=== PATIENT | female | born 1960 | race Hispanic/Latino ===

== ENCOUNTER → 2021-02-27 | Outpatient (CLI) | payer MEDICAID, OTHER ==
[~2021-02-27] MED LIST: AMIT50TA PO; BASA100I SQ; BUSP15TA47 PO; FLUTISP INH; IBUP80TA PO; INVO100T PO; LOSA50TA88 PO; METF10004 PO; METH-1177 PO; METR-265 PO; NYST1POW9 TOP; QUET200T2 PO; RAME8TAB2 PO; SIMV40TA20 PO; TRAZ-189 PO
== END ==
LOC: M LABSMTC 11:05
PROVIDERS: ATTEND Anesthesiology
DX: Z01.812 Encounter for preprocedural laboratory examination (principal); Z11.52 Encounter for screening for COVID-19

== ENCOUNTER 2021-03-04 10:33 | Day surgery (SDC) | payer OTHER ==
[~2021-03-04] VITALS: Ht 152.4 cm; Wt 90.6 kg
[~2021-03-04 10:33] MED LIST changes: +LOSA50TA28 PO; -LOSA50TA88 PO; +NS 1,000 ML IV ONE
[2021-03-04] MEDS ORDERED: LIDOCAINE 2% 100MG/5ML SDV (FOR ANES.) As Ordered ONE (12:12)
[2021-03-04] MEDS ORDERED: propofoL 200 MG/20 ML VIAL As Ordered ONE ×2 (12:12→12:22)
[2021-03-04 13:05] VITALS: BP 183/90
== END 2021-03-04 13:15 | disposition home or self-care (01) ==
LOC: M OPP 10:33
PROVIDERS: ATTEND Internal Medicine Gastroenterology
DX: Z12.11 Encounter for screening for malignant neoplasm of colon (principal); D12.6 Benign neoplasm of colon, unspecified; K57.30 Diverticulosis of large intestine without perforation or abscess without bleeding; K64.0 First degree hemorrhoids; D49.0 Neoplasm of unspecified behavior of digestive system; K63.89 Other specified diseases of intestine; Z79.82 Long term (current) use of aspirin; Z79.84 Long term (current) use of oral hypoglycemic drugs; Z79.899 Other long term (current) drug therapy

== ENCOUNTER 2021-04-01 07:30 | Inpatient (IN) | payer OTHER ==
[~2021-04-01] VITALS: Ht 152.4 cm; Wt 95.6 kg
[~2021-04-01 07:30] MED LIST changes: -GASTROGRAFIN SOLUTION 30ML (Q9963) ONE; -ISOVUE-370 76% 100ML VIAL ONE; -METR-265; -NEOM500T; -PERCOCET PO
[2021-04-09] MEDS ORDERED: cefTRIAXone SOD 2 GM in D5W MINI-BAG PLUS 50 ML IV ONE (06:00)
[2021-04-09] MEDS ORDERED: LIDOCAINE 1% MDV 20ML VIAL SQ PRN (06:00)
[2021-04-09] MEDS ORDERED: LR 1,000 ML IV ONE (06:00)
[2021-04-09] MEDS ORDERED: METR-265 (06:36)
[2021-04-09] MEDS ORDERED: NEOM500T (06:36)
[2021-04-09] MEDS ORDERED: BUPIVACAINE/EPIN 0.25% 30 ML VIAL As Ordered ONE (07:11)
[2021-04-09] MEDS ORDERED: GLUCAGON INJ 1MG VIAL As Ordered ONE (07:11)
[2021-04-09] MEDS ORDERED: LIDOCAINE 2% 100MG/5ML SDV (FOR ANES.) As Ordered ONE (07:19)
[2021-04-09] MEDS ORDERED: propofoL 200 MG/20 ML VIAL As Ordered ONE (07:19)
[2021-04-09] MEDS ORDERED: ROCURONIUM BROMIDE 50 MG/5 ML VIAL As Ordered ONE ×2 (07:19→08:09)
[2021-04-09] MEDS ORDERED: MIDAZOLAM INJ 2MG/2ML VIAL (J2250 PER 1MG) As Ordered ONE (07:20)
[2021-04-09] MEDS ORDERED: fentaNYL 100 MCG/2 ML INJECTION (J3010) As Ordered ONE (07:20)
[2021-04-09] MEDS ORDERED: dexameTHASONE 4 MG/ML 1ML VIAL (J1100 PER 1MG) As Ordered ONE (07:55)
[2021-04-09] MEDS ORDERED: SUGAMMADEX SODIUM 500 MG/5 ML VIAL (BRIDION) As Ordered ONE (08:09)
[2021-04-09] MEDS ORDERED: ONDANSETRON 4MG/2ML VIAL As Ordered ONE (08:09)
[2021-04-09] MEDS ORDERED: ACETAMINOPHEN 1000MG 100ML IV BTL (OFIRMEV) (J0131 PER 10MG) As Ordered ONE (08:09)
[2021-04-09] MEDS ORDERED: METOCLOPRAMIDE INJ 10MG/2ML VIAL (J2765 PER 1) As Ordered ONE (08:09)
[2021-04-09] MEDS ORDERED: HYDROmorphone HCL 2MG/ML 1ML VIAL As Ordered ONE (08:10)
[2021-04-09] MEDS ORDERED: BUPIVACAINE HCL 0.25% 10ML VIAL As Ordered ONE (10:31)
[2021-04-09] MEDS ORDERED: BUPIVACAINE LIPOSOME/PF 1.3% 20ML VIAL (13.3MG/ML)(EXPAREL)(C9290 PER1MG) As Ordered ONE (10:31)
[2021-04-09] MEDS ORDERED: MORPHINE 2 MG/ML 1ML VIAL (J2270) IV PRN ×2 (11:05)
[2021-04-09] MEDS ORDERED: ONDANSETRON 4MG/2ML VIAL IV PRN ×2 (11:05→11:35)
[2021-04-09] MEDS ORDERED: FLUTICASONE PROP 0.05% NASAL SPRAY 16 GM (FLONASE) NARES PRN (11:10)
[2021-04-09] MEDS ORDERED: oxyCODONE 5MG TAB PO PRN (11:35)
[2021-04-09] MEDS ORDERED: fentaNYL 100 MCG/2 ML INJECTION (J3010) IV PRN (11:35)
[2021-04-09] MEDS ORDERED: LR 1,000 ML IV SCH (11:35)
[2021-04-09] MEDS: MORPHINE 2 MG/ML 1ML VIAL (J2270) IV PRN ×3 (11:46→17:20)
[2021-04-09] MEDS: IPRATROPIUM 0.5MG/ALBUTEROL 2.5MG INH SOL UD 3ML (DUONEB) NEB SCH ×3 (12:00→19:37)
[2021-04-09 14:05] VITALS: BP 155/106
[2021-04-09] MEDS: LR 1,000 ML IV SCH ×2 (14:20→22:39)
[2021-04-09] MEDS: KETOROLAC 30 MG/ML 1ML VIAL IV SCH ×2 (14:34→20:48)
[2021-04-09] MEDS ORDERED: DEXTROSE 50% 50 ML SYRINGE IV PRN (15:10)
[2021-04-09] MEDS ORDERED: GLUCAGON INJ 1MG VIAL SC PRN (15:10)
[2021-04-09] MEDS ORDERED: GLUCOSE 4GM CHEW TABLET PO PRN (15:10)
[2021-04-09] MEDS: AMITRIPTYLINE 50 MG TAB PO SCH ×2 (16:54→20:46)
[2021-04-09] MEDS: HumaLOG INSULIN (NovoLOG) PER UNIT SC SCH (17:31)
[2021-04-09 19:15] VITALS: BP 185/95
[2021-04-09] MEDS ORDERED: LOSARTAN 50MG TABLET PO ONE (19:25)
[2021-04-09] MEDS: traZODone 100 MG TAB PO SCH (20:45)
[2021-04-09] MEDS: busPIRone 5 MG TAB PO SCH (20:46)
[2021-04-09] MEDS: RAMELTEON 8 MG TAB (ROZEREM) PO SCH (20:46)
[2021-04-09 21:00] VITALS: BP 141/99
[2021-04-09] MEDS: QUEtiapine FUMARATE 200 MG TAB PO SCH (21:00)
[2021-04-09 22:00] VITALS: BP 107/76
[2021-04-09 22:41] LABS: HEMATOCRIT 38.3 % (36.0-47.0); HEMOGLOBIN 12.5 g/dl (12.0-15.5)
[2021-04-09 23:10] VITALS: BP 111/76
[2021-04-10 02:00] VITALS: BP 111/75
[2021-04-10] MEDS: HumaLOG INSULIN (NovoLOG) PER UNIT SC SCH ×5 (02:05→23:43)
[2021-04-10 02:50] VITALS: BP 105/69
[2021-04-10] MEDS: MORPHINE 2 MG/ML 1ML VIAL (J2270) IV PRN ×2 (03:17→21:18)
[2021-04-10] MEDS: KETOROLAC 30 MG/ML 1ML VIAL IV SCH ×5 (04:41→19:04)
[2021-04-10 06:00] VITALS: BP 103/67
[2021-04-10 06:17] LABS: HEMATOCRIT 29.9 % (36.0-47.0); MEAN CORPUSCULAR HEMOGLOBIN 30.4 pg (27.0-33.0); MEAN CORPUSCULAR HGB CONC 32.1 g/dl (32.0-36.5); MEAN CORPUSCULAR VOLUME 94.6 fl (80.0-96.0); PLATELET COUNT, AUTOMATED 275 10^3/uL (150-450); RED BLOOD COUNT 3.16 10^6/uL (4.00-5.40); WHITE BLOOD COUNT 11.9 10^3/uL (4.0-10.0)
[2021-04-10 06:27] LABS: HEMOGLOBIN 9.6 g/dl (12.0-15.5)
[2021-04-10] MEDS: LR 1,000 ML IV SCH ×3 (06:43→21:17)
[2021-04-10 07:00] LABS: CALCIUM LEVEL 8.3 MG/DL (8.8-10.2); CREATININE FOR GFR 1.27 MG/DL (0.55-1.30); GLOMERULAR FILTRATION RATE 45.7 (>45)
[2021-04-10] MEDS: IPRATROPIUM 0.5MG/ALBUTEROL 2.5MG INH SOL UD 3ML (DUONEB) NEB SCH ×4 (08:00→19:58)
[2021-04-10] MEDS ORDERED: cefTRIAXone SOD 1 GM in D5W MINI-BAG PLUS 50 ML IV ONE (08:00)
[2021-04-10] MEDS: LOSARTAN 50MG TABLET PO SCH (09:00)
[2021-04-10 10:26] LABS: HEMATOCRIT 29.2 % (36.0-47.0); HEMOGLOBIN 9.4 g/dl (12.0-15.5)
[2021-04-10] MEDS: PANTOPRAZOLE 40MG VIAL (C9113 PER 1) IV SCH (10:40)
[2021-04-10] MEDS: QUEtiapine FUMARATE 200 MG TAB PO SCH ×2 (10:41→21:16)
[2021-04-10] MEDS: AMITRIPTYLINE 50 MG TAB PO SCH ×3 (10:41→21:16)
[2021-04-10] MEDS ORDERED: NS 1,000 ML IV ONE (11:55)
[2021-04-10 14:00] VITALS: BP 118/68
[2021-04-10] MEDS: RAMELTEON 8 MG TAB (ROZEREM) PO SCH (21:16)
[2021-04-10] MEDS: traZODone 100 MG TAB PO SCH (21:16)
[2021-04-10] MEDS: busPIRone 5 MG TAB PO SCH (21:19)
[2021-04-10 22:00] VITALS: BP 127/79
[2021-04-11] VITALS (16 sets, daily range): BP systolic 113–149; BP diastolic 67–84; O2SAT 87–95
[2021-04-11] MEDS: KETOROLAC 30 MG/ML 1ML VIAL IV SCH ×4 (01:51→19:03)
[2021-04-11] MEDS: LR 1,000 ML IV SCH (05:58)
[2021-04-11] MEDS: HumaLOG INSULIN (NovoLOG) PER UNIT SC SCH ×3 (06:09→18:00)
[2021-04-11 06:15] LABS: HEMATOCRIT 21.6 % (36.0-47.0); MEAN CORPUSCULAR HEMOGLOBIN 30.8 pg (27.0-33.0); MEAN CORPUSCULAR HGB CONC 32.4 g/dl (32.0-36.5); MEAN CORPUSCULAR VOLUME 95.2 fl (80.0-96.0); PLATELET COUNT, AUTOMATED 177 10^3/uL (150-450); RED BLOOD COUNT 2.27 10^6/uL (4.00-5.40); WHITE BLOOD COUNT 9.7 10^3/uL (4.0-10.0)
[2021-04-11 06:37] LABS: BLOOD UREA NITROGEN 15 MG/DL (7-18); CALCIUM LEVEL 7.7 MG/DL (8.8-10.2); CARBON DIOXIDE LEVEL 28 MEQ/L (21-32); CHLORIDE LEVEL 111 MEQ/L (98-107); CREATININE FOR GFR 0.79 MG/DL (0.55-1.30); GLOMERULAR FILTRATION RATE > 60.0 (>45); GLUCOSE, FASTING 124 MG/DL (70-100); POTASSIUM SERUM 3.6 MEQ/L (3.5-5.1); SODIUM LEVEL 142 MEQ/L (136-145)
[2021-04-11] MEDS: QUEtiapine FUMARATE 200 MG TAB PO SCH ×2 (08:28→20:16)
[2021-04-11] MEDS: AMITRIPTYLINE 50 MG TAB PO SCH ×3 (08:28→20:15)
[2021-04-11] MEDS: PANTOPRAZOLE 40MG VIAL (C9113 PER 1) IV SCH (08:28)
[2021-04-11] MEDS: LOSARTAN 50MG TABLET PO SCH (08:30)
[2021-04-11] MEDS: IPRATROPIUM 0.5MG/ALBUTEROL 2.5MG INH SOL UD 3ML (DUONEB) NEB SCH ×4 (09:22→20:00)
[2021-04-11] MEDS: MORPHINE 2 MG/ML 1ML VIAL (J2270) IV PRN (15:47)
[2021-04-11] MEDS: traZODone 100 MG TAB PO SCH (20:15)
[2021-04-11] MEDS: RAMELTEON 8 MG TAB (ROZEREM) PO SCH (20:15)
[2021-04-11] MEDS: busPIRone 5 MG TAB PO SCH (20:15)
[2021-04-12] VITALS (7 sets, daily range): BP systolic 121–161; BP diastolic 68–86
[2021-04-12] MEDS: HumaLOG INSULIN (NovoLOG) PER UNIT SC SCH ×4 (00:36→18:50)
[2021-04-12] MEDS: KETOROLAC 30 MG/ML 1ML VIAL IV SCH ×4 (01:53→19:49)
[2021-04-12] MEDS: MORPHINE 2 MG/ML 1ML VIAL (J2270) IV PRN ×2 (05:35→16:43)
[2021-04-12 06:30] LABS: HEMOGLOBIN 8.9 g/dl (12.0-15.5); MEAN CORPUSCULAR HEMOGLOBIN 30.1 pg (27.0-33.0); MEAN CORPUSCULAR VOLUME 91.2 fl (80.0-96.0); PLATELET COUNT, AUTOMATED 175 10^3/uL (150-450); RED BLOOD COUNT 2.96 10^6/uL (4.00-5.40); WHITE BLOOD COUNT 7.5 10^3/uL (4.0-10.0)
[2021-04-12 06:59] LABS: BLOOD UREA NITROGEN 8 MG/DL (7-18); CALCIUM LEVEL 7.9 MG/DL (8.8-10.2); CARBON DIOXIDE LEVEL 28 MEQ/L (21-32); CHLORIDE LEVEL 110 MEQ/L (98-107); CREATININE FOR GFR 0.64 MG/DL (0.55-1.30); GLOMERULAR FILTRATION RATE > 60.0 (>45); GLUCOSE, FASTING 115 MG/DL (70-100); POTASSIUM SERUM 3.3 MEQ/L (3.5-5.1); SODIUM LEVEL 143 MEQ/L (136-145)
[2021-04-12] MEDS: IPRATROPIUM 0.5MG/ALBUTEROL 2.5MG INH SOL UD 3ML (DUONEB) NEB SCH ×4 (09:02→20:00)
[2021-04-12] MEDS: PANTOPRAZOLE 40MG VIAL (C9113 PER 1) IV SCH (09:12)
[2021-04-12] MEDS: QUEtiapine FUMARATE 200 MG TAB PO SCH ×2 (09:12→19:48)
[2021-04-12] MEDS: AMITRIPTYLINE 50 MG TAB PO SCH ×3 (09:12→19:48)
[2021-04-12] MEDS: LOSARTAN 50MG TABLET PO SCH (09:14)
[2021-04-12] MEDS: traZODone 100 MG TAB PO SCH (19:48)
[2021-04-12] MEDS: busPIRone 5 MG TAB PO SCH (19:48)
[2021-04-12] MEDS: RAMELTEON 8 MG TAB (ROZEREM) PO SCH (19:48)
[2021-04-13] VITALS: BP 127/74
[2021-04-13] MEDS: KETOROLAC 30 MG/ML 1ML VIAL IV SCH ×3 (00:28→13:00)
[2021-04-13] MEDS: HumaLOG INSULIN (NovoLOG) PER UNIT SC SCH ×3 (00:28→12:28)
[2021-04-13 00:38] VITALS: O2SAT 96
[2021-04-13 04:00] VITALS: BP 127/73
[2021-04-13 06:21] LABS: HEMATOCRIT 27.1 % (36.0-47.0); HEMOGLOBIN 8.9 g/dl (12.0-15.5); MEAN CORPUSCULAR HEMOGLOBIN 30.1 pg (27.0-33.0); MEAN CORPUSCULAR HGB CONC 32.8 g/dl (32.0-36.5); MEAN CORPUSCULAR VOLUME 91.6 fl (80.0-96.0); PLATELET COUNT, AUTOMATED 206 10^3/uL (150-450); RED BLOOD COUNT 2.96 10^6/uL (4.00-5.40); WHITE BLOOD COUNT 6.4 10^3/uL (4.0-10.0)
[2021-04-13 06:47] LABS: BLOOD UREA NITROGEN 6 MG/DL (7-18); CARBON DIOXIDE LEVEL 28 MEQ/L (21-32); CHLORIDE LEVEL 110 MEQ/L (98-107); CREATININE FOR GFR 0.75 MG/DL (0.55-1.30); GLOMERULAR FILTRATION RATE > 60.0 (>45); GLUCOSE, FASTING 157 MG/DL (70-100); POTASSIUM SERUM 3.2 MEQ/L (3.5-5.1); SODIUM LEVEL 143 MEQ/L (136-145)
[2021-04-13] MEDS ORDERED: PERCOCET 5MG/325MG TAB PO PRN (07:25)
[2021-04-13] MEDS: IPRATROPIUM 0.5MG/ALBUTEROL 2.5MG INH SOL UD 3ML (DUONEB) NEB SCH ×2 (08:00→12:00)
[2021-04-13 09:00] VITALS: O2SAT 97
[2021-04-13] MEDS: AMITRIPTYLINE 50 MG TAB PO SCH (09:00)
[2021-04-13] MEDS: LOSARTAN 50MG TABLET PO SCH (09:00)
[2021-04-13] MEDS: QUEtiapine FUMARATE 200 MG TAB PO SCH (09:00)
[2021-04-13] MEDS: PANTOPRAZOLE 40MG VIAL (C9113 PER 1) IV SCH (09:00)
[2021-04-13] MEDS: PERCOCET 5MG/325MG TAB PO PRN ×2 (09:02→15:05)
[2021-04-13 10:00] VITALS: BP 133/61
[2021-04-13] MEDS ORDERED: PERCOCET PO (12:01)
[2021-04-13] MEDS ORDERED: POTASSIUM CHLORIDE 10MEQ SR TABLET PO ONE (13:00)
== END 2021-04-13 15:15 | disposition home or self-care (01) | DRG 221 ==
LOC: M OR 04-09 06:08 → M MSPAV 04-09 14:07
PROVIDERS: ADMIT Surgery; ATTEND Surgery
PROC: 8E0W4CZ Robotic Assisted Procedure of Trunk Region, Percutaneous Endoscopic Approach (ICD-10-PCS; 2021-04-09)
PROC: 0DTJ4ZZ Resection of Appendix, Percutaneous Endoscopic Approach (ICD-10-PCS; 2021-04-09)
PROC: 0DBE4ZZ Excision of Large Intestine, Percutaneous Endoscopic Approach (ICD-10-PCS; principal; 2021-04-09 07:30)
DX: D12.0 Benign neoplasm of cecum (principal); F41.9 Anxiety disorder, unspecified; F31.9 Bipolar disorder, unspecified; E11.9 Type 2 diabetes mellitus without complications; I10 Essential (primary) hypertension; I95.1 Orthostatic hypotension; Z90.49 Acquired absence of other specified parts of digestive tract; Z79.4 Long term (current) use of insulin; Z79.82 Long term (current) use of aspirin; Z79.899 Other long term (current) drug therapy

== ENCOUNTER → 2021-04-01 | Outpatient (CLI) | payer OTHER ==
[~2021-04-01] MED LIST changes: +GASTROGRAFIN SOLUTION 30ML (Q9963) ONE; +ISOVUE-370 76% 100ML VIAL ONE; +METR-265; +NEOM500T; -NS 1,000 ML IV ONE; +PERCOCET PO
== END ==
LOC: M PLAIMG 12:32
PROVIDERS: ATTEND Surgery
DX: K63.5 Polyp of colon (principal); D37.4 Neoplasm of uncertain behavior of colon; N20.0 Calculus of kidney

== ENCOUNTER → 2021-04-04 | Outpatient (CLI) | payer OTHER ==
[~2021-04-04] MED LIST changes: -LOSA50TA28 PO; +LOSA50TA88 PO
== END ==
LOC: M LABSMTC 11:47
PROVIDERS: ATTEND Anesthesiology
DX: Z01.818 Encounter for other preprocedural examination (principal); Z11.52 Encounter for screening for COVID-19

== ENCOUNTER → 2022-06-13 | Outpatient (CLI) | payer OTHER ==
[~2022-06-13] MED LIST changes: +LOSA50TA28 PO; -LOSA50TA88 PO; +METR-265; +NEOM500T; +PERCOCET PO
== END ==
LOC: M WHC 10:04
PROVIDERS: ATTEND Nurse Practitioner Family
DX: Z12.31 Encounter for screening mammogram for malignant neoplasm of breast (principal); M85.88 Other specified disorders of bone density and structure, other site